=== PATIENT | female | born 1960 | race Caucasian/White ===

== ENCOUNTER 2017-10-24 07:05 | Day surgery (SDC) | payer MEDICARE, SELFPAY ==
[~2017-10-24] VITALS: Ht 157.5 cm; Wt 46.3 kg
[~2017-10-24 07:05] MED LIST: CLON1 PO; LOSA50 PO; MIRT15 PO; OXYC10TA19 PO; Robaxin500 MG PO
== END 2017-10-24 22:49 | disposition home or self-care (01) ==
LOC: ORSCMMR 07:05
PROVIDERS: Internal Medicine Gastroenterology
PROC: 0DBK8ZX Excision of Ascending Colon, Via Natural or Artificial Opening Endoscopic, Diagnostic (ICD-10-PCS; principal; 2017-10-24 08:00)
PROC: 0DBN8ZX Excision of Sigmoid Colon, Via Natural or Artificial Opening Endoscopic, Diagnostic (ICD-10-PCS; principal; 2017-10-24 08:00)
DX: Z12.11 Encounter for screening for malignant neoplasm of colon (principal); D12.2 Benign neoplasm of ascending colon; K63.5 Polyp of colon; I10 Essential (primary) hypertension; F32.9 Major depressive disorder, single episode, unspecified; F17.210 Nicotine dependence, cigarettes, uncomplicated; Z79.899 Other long term (current) drug therapy
CPT/HCPCS: 88305; J7120

== ENCOUNTER 2017-11-14 13:38 | Day surgery (SDC) | payer MEDICARE, SELFPAY | END 2017-11-14 22:52 | disposition home or self-care (01) | LOC: RAD 13:38 | PROC: BP29YZZ Computerized Tomography (CT Scan) of Left Shoulder using Other Contrast (ICD-10-PCS; principal; 2017-11-14) | DX: M25.512 Pain in left shoulder (principal) | CPT/HCPCS: 23350; 73201; 77002; Q9967 ==

== ENCOUNTER 2019-11-08 09:49 | Inpatient (IN) | payer MEDICARE ==
[~2019-11-08] VITALS: Ht 154.9 cm; Wt 47.9 kg
[~2019-11-08 09:49] MED LIST changes: -LOSA50 PO
[2019-11-08 10:34] LABS: BASOPHILS ABSOLUTE AUTO 0.06 K/mm3 (0.00-0.23); BASOPHILS PERCENT AUTO 1 % (0-2); EOSINOPHILS PERCENT AUTO 1 % (0-6); Hemoglobin 13.6 g/dL (11.5-16.0); IMMATURE GRAN ABSOLUTE AUTO 0.03 K/mm3 (0.00-0.10); IMMATURE GRAN PERCENT AUTO 0 % (0-1); LYMPHOCYTES ABSOLUTE AUTO 1.67 K/mm3 (0.84-5.20); LYMPHOCYTES PERCENT AUTO 14 % (21-46); MONOCYTES PERCENT AUTO 4 % (4-13); Mean Corpuscular HGB 31.3 pg (26.0-34.0); Mean Corpuscular HGB Conc 33.2 g/dL (31.5-36.5); Mean Corpuscular Volume 95 fL (80-100); Mean Platelet Volume 10.9 fL (9.1-12.4); NEUTROPHILS ABSOLUTE AUTO 9.35 K/mm3 (1.96-9.15); NEUTROPHILS PERCENT AUTO 80 % (41-73); Platelet Count 230 K/mm3 (150-400); RDW Coefficient Variation 11.9 % (11.7-14.2); RDW Standard Deviation 41.7 fL (35.1-46.3); Red Blood Cell Count 4.34 M/mm3 (3.80-5.20); White Blood Cell Count 11.71 K/mm3 (4.00-11.30)
[2019-11-08 10:53] LABS: Alanine Aminotransfer (ALT/SGP 21 U/L (12-78); Albumin, Blood 4.2 g/dL (3.4-5.0); Albumin/Globulin Ratio 1.5 (0.8-1.8); Alk Phos 86 U/L (50-136); Anion Gap 8 mmol/L (6-16); Aspartate Aminotrans (AST/SGOT 23 U/L (12-37); Bilirubin, Total 0.3 mg/dL (0.1-1.0); Blood Urea Nitrogen 14 mg/dL (8-24); Bun/Creatinine Ratio 21.6 (12.0-20.0); CO2, Blood 27 mmol/L (21-32); Calcium, Blood 9.2 mg/dL (8.5-10.1); Chloride, Blood 106 mmol/L (98-108); Creatinine, Blood 0.65 mg/dL (0.40-1.00); Globulin, Blood 2.8 g/dL (2.2-4.0); Glomerular Filtration Rate >60 (60-); Glucose, Blood 131 mg/dL (70-99); Potassium, Blood 3.4 mmol/L (3.5-5.5); Sodium, Blood 141 mmol/L (136-145)
[2019-11-08] MEDS ORDERED: LOSARTAN POTAS100 MG PO (12:58)
[2019-11-08] MEDS ORDERED: ESCITALOPRAM OX10 M1 PO (12:58)
[2019-11-08] MEDS ORDERED: DIAZEPAM10 MG PO (12:59)
[2019-11-08] MEDS ORDERED: ACET500 PO (13:05)
[2019-11-08 13:14] LABS: Creatine Kinase MB 3.3 ng/mL (0.0-3.6); Creatine Kinase MB Index 1.6 (0.0-4.0)
[2019-11-08 13:20] LABS: CHOL/HDL RATIO 3.4; Cholesterol 188 mg/dL (50-200); HDL Cholesterol 55 mg/dL (>39); LDL/HDL RATIO 2.1; Low Density Lipoprotein Chol 116 mg/dL (0-110); Triglycerides 86 mg/dL (30-160); Very Low Density Lipoprot Chol 17 mg/dL (6-32)
[2019-11-08 14:13] LABS: International Normalized Ratio 1.08; Prothrombin Time Results 11.5 Sec (9.7-11.5)
--- NOTE | 2019-11-08 19:30 | NUR ---
RECEIVED REPORT FROM LETICIA PRIETO. ASSUMED CARE OF PT. SITTING UP IN BED AT THIS TIME, IN APPARENT DISTRESS, C/O LLQ ABD PAIN, HEATING PAD BROUGHT TO PT, APPEARED INCREASINGLY COMFORTABLE, OFF GOING RN ADMINISTERING PAIN MEDICATION TO PT. HEPARIN DRIP VERIFIED, INFUSION ONGOING. NS INFUSING AT 125ML/HR. PT DENIES ANY OTHER NEEDS AT THIS TIME. CALL LIGHT AND POSSESSIONS IN REACH, BED IN LOW POSITION WITH BED ALARM ACTIVATED, WILL CONTINUE TO MONITOR.
--- NOTE | 2019-11-08 19:55 | NUR ---
PT RECEIVED FROM [facility] AT 1545. PT IS HERE FOR ELEVATED TROPONIN AND ABDOMINAL PAIN. PT CT SHOWS SMALL OVARIAN CYSTS, DR HEIDI HARRIS WAS CONSULTED, PT WAS SEEN AND EXAMINED DIDNT SUGGEST TO DO ANY SURGERY OF THIS TIME UNTIL HEART ISSUES ARE FIXED, PT AGREED. PT HAS BEEN REPORTING 6-7/10 PAIN LEVEL, FENTANYL IV GIVEN Q3 HRS AND APAP IN BETWEEN, WAS SLIGHTLY EFFECTIVE. PT ALSO HAD NAUSEA RELIEVED BY ZOFRAN. PT CURRENTLY ON HEPARIN DRIP RUNNING AT 11U/KG/HR 9.2ML/HR AND IV FLUID PLAIN AT 125MLS/HR. PT WAS OFFERED HEAT/WARM BLANKET TO HELP WITH THE PAIN. CARDIOLOGISTS CONSULTED WELL FOR ELEVATED TROP, FOR POSSIBLE ANGIO PROCEDURE TOMORROW OR STRESS TEST. REPORT GIVEN TO ONCOMING SHIFT.
--- NOTE | 2019-11-08 20:36 | NUR ---
SPOKE TO DR. MAGANA REGARDING PT'S TROPONIN LEVEL AND PAIN UNCONTROLLED BY CURRENT MEDICATIONS. ORDERS RECEIVED.
[2019-11-09 01:59] LABS: BASOPHILS ABSOLUTE AUTO 0.03 K/mm3 (0.00-0.23); BASOPHILS PERCENT AUTO 0 % (0-2); EOSINOPHILS ABSOLUTE AUTO 0.06 K/mm3 (0.00-0.68); EOSINOPHILS PERCENT AUTO 1 % (0-6); Hematocrit 36.4 % (33.0-51.0); Hemoglobin 12.1 g/dL (11.5-16.0); IMMATURE GRAN ABSOLUTE AUTO 0.02 K/mm3 (0.00-0.10); IMMATURE GRAN PERCENT AUTO 0 % (0-1); LYMPHOCYTES ABSOLUTE AUTO 2.47 K/mm3 (0.84-5.20); LYMPHOCYTES PERCENT AUTO 30 % (21-46); MONOCYTES ABSOLUTE AUTO 0.47 K/mm3 (0.16-1.47); MONOCYTES PERCENT AUTO 6 % (4-13); Mean Corpuscular HGB 31.5 pg (26.0-34.0); Mean Corpuscular HGB Conc 33.2 g/dL (31.5-36.5); Mean Corpuscular Volume 95 fL (80-100); NEUTROPHILS ABSOLUTE AUTO 5.16 K/mm3 (1.96-9.15); NEUTROPHILS PERCENT AUTO 63 % (41-73); Platelet Count 184 K/mm3 (150-400); Red Blood Cell Count 3.84 M/mm3 (3.80-5.20); White Blood Cell Count 8.21 K/mm3 (4.00-11.30)
[2019-11-09 02:17] LABS: Alanine Aminotransfer (ALT/SGP 22 U/L (12-78); Albumin, Blood 3.4 g/dL (3.4-5.0); Albumin/Globulin Ratio 1.4 (0.8-1.8); Alk Phos 67 U/L (50-136); Anion Gap 7 mmol/L (6-16); Aspartate Aminotrans (AST/SGOT 28 U/L (12-37); Bilirubin, Total 0.3 mg/dL (0.1-1.0); Blood Urea Nitrogen 9 mg/dL (8-24); Bun/Creatinine Ratio 13.9 (12.0-20.0); CO2, Blood 27 mmol/L (21-32); Calcium, Blood 8.7 mg/dL (8.5-10.1); Chloride, Blood 107 mmol/L (98-108); Creatinine, Blood 0.65 mg/dL (0.40-1.00); Globulin, Blood 2.5 g/dL (2.2-4.0); Glomerular Filtration Rate >60 (60-); Glucose, Blood 111 mg/dL (70-99); Potassium, Blood 3.5 mmol/L (3.5-5.5); Sodium, Blood 141 mmol/L (136-145); Total Protein, Blood 5.9 g/dL (6.4-8.2)
--- NOTE | 2019-11-09 03:03 | NUR ---
SPOKE TO DR. FERNANDO REGARDING PT'S TROPONIN LEVEL AND CONTINUED UNRELIEVED PAIN. ORDERS RECEIVED.
--- NOTE | 2019-11-09 04:45 | NUR ---
PT CONTINUING TO EXPERIENCE PAIN UNRELIEVED BY CURRENT MEDICATION REGIMEN. DR. FERNANDO NOTIFIED OF PT CONDITION, ORDERS RECEIVED.
--- NOTE | 2019-11-09 08:10 | NUR ---
PT RESTING IN BED COMFORTABLY IN NO ACUTE DISTRESS. WAS MONITORED EVERY 1-2 HOURS WITH NEEDS MET, DENIES ANY NEEDS AT THIS TIME. APPEARS TO BE RESTING COMFORTABLY. CALL LIGHT AND POSSESSIONS IN REACH, BED IN LOW POSITION WITH BED ALARM ACTIVATED. REPORTED OFF TO LETICIA JIMÉNEZ.
[2019-11-09 09:09] LABS: Source, Urine Clean Catch
[2019-11-09 09:16] LABS: Bilirubin, Urine Neg (Neg); Blood, Urine 3+ (Neg); Glucose Qualitative, Urine Neg (Neg); Ketones, Urine 3+ (Neg); Leukocyte Esterase, Urine 3+ (Neg); Nitrite, Urine Neg (Neg); Protein, Urine 1+ (Neg); Urobilinogen, Urine NORM (Normal)
[2019-11-09 09:26] LABS: Appearance, Urine Clear (Clear); Color, Urine Yellow (P-Yellow)
[2019-11-09 09:28] LABS: Red Blood Cells, Urine 0-2 /hpf (0-2)
[2019-11-09 09:29] LABS: Bacteria Few /hpf; Squamous Epithelial Cells Rare /hpf (Few); Transitional Epithelial Cells Rare /hpf (0-Rare)
--- NOTE | 2019-11-09 16:27 | NUR ---
SHIFT SUMMARY PT A&Ox4; CALM AND COOPERATIVE WITH CARE. PT RESTING IN BED FOR MAJORITY OF SHIFT, SBA TO BSC. PT REPORTING PAIN IN LLQ; MEDICATED x2 WITH DILAUDID AND x1 WITH ROXICODONE WITH POSTIIVE RESULTS. PT DENIES SOB; CP/PRESSURE; DIZZINESS; AND NAUSEA. HEPARIN GTT INFUSION T/O SHIFT, TITRATED PER ORDERS AND EMAR. NPO AFTER MIDNIGHT FOR ANGIO TOMORROW. PT STARTED ON COREG THIS EVENING. VSS. NO OTHER ACUTE CHANGES NOTED DURING SHIFT. WILL CONTINUE TO MONITOR UNTIL REPORT GIVEN TO ONCOMING RN.
--- NOTE | 2019-11-09 19:40 | NUR ---
RECEIVED REPORT FROM LETICIA JIMÉNEZ. PT TRANSPORTED TO PCU FROM [facility]IA [facility]OSPITAL BED, IN NO ACUTE DISTRESS. VS STABLE, RIGHT RADIAL TR SITE WNL, NO OOZING OR HEMATOMA NOTED, GOOD CAPILLARY REFILL. PT DENIES NUMBNESS OR TINGLING. DENIES ANY NEEDS AT THIS TIME, CALL LIGHT AND POSSESSIONS IN REACH, BED ALARM ACTIVATED, REMINDED PT TO CALL WITH NEEDS. INDICATED UNDERSTANDING. WILL CONTINUE TO MONITOR.
--- NOTE | 2019-11-09 20:57 | NUR ---
Echocardiogram completed.
--- NOTE | 2019-11-10 07:25 | NUR ---
PT SITTING ON EDGE OF BED. SLEPT ON AND OFF T/O NIGHT. VS STABLE, PAIN CONTROLLED WITH HEAT PACKS, REST, AND MEDICATIONS ORDERED. ASSESSED RIGHT RADIAL TR SITE WITH ONCOMING RN. PT DENIES ANY FURTHER NEEDS AT THIS TIME. CALL LIGHT AND POSSESSIONS IN REACH, BED IN LOW POSITION. REPORTED OFF TO LETICIA JIMÉNEZ.
[2019-11-10] MEDS ORDERED: Aspir 8181 MG PO (11:08)
[2019-11-10] MEDS ORDERED: ATORVASTATIN CA20 MG PO (11:09)
[2019-11-10] MEDS ORDERED: CARV3.125 PO (11:10)
[2019-11-10] MEDS ORDERED: NICO21TP TOP (11:14)
--- NOTE | 2019-11-10 17:52 | NUR ---
DISCHARGE NOTE PT A&Ox4; ANXIOUS AT TIMES BUT COOPERATIVE WITH CARE. MEDICATED x1 FOR ANXIETY PER EMAR. PT RESTING IN BED DURING SHIFT; UP IND TO BSC. PT REPORTING LLQ PAIN, MEDICATED x2 WITH ROXICODONE AND x1 WITH TYLENOL WITH POSITIVE RESULTS. PT DENIES SOB; CHEST PAIN/PRESSURE, NAUSEA AND DIZZINESS T/O SHIFT. RIGHT RADIAL SITE C/D/I; SMALL SOFT BALL NOTED PAROXYMAL OF RADIAL INSERTION SITE; PER REPORT HAS REMAINED THE SAME T/O NIGHT; NO CHANGES DURING SHIFT; NO BLEEDING OR BRUISING NOTED T/O SHIFT. IMMOBILIZER IN PLACE. VSS. NO OTHER ACUTE CHANGES NOTED DURING SHIFT. PT EDUCATED ON DISCHARGE INSTURCTIONS, FOLLOW UP APPOINTMENT AND MEDICATIONS. PRESCRIPTIONS FAXED TO [facility]; PAPER SCRIPT GIVEN TO PATIENT ON DISCHARGE. PT LEFT ROOM VIA WHEELCHAIR AT 1250; PT STABLE UPON DISCAHRGE.
[2019-11-11 13:07] LABS: T-TRANSGLUTAMINASE (TTG) IGA <2 U/mL (0-3); T-TRANSGLUTAMINASE (TTG) IGG 4 U/mL (0-5)
== END 2019-11-10 12:54 | disposition home or self-care (01) | DRG 281 ==
LOC: ER 09:49 → PCU 09:50
PROVIDERS: Emergency Medicine; ADMIT Internal Medicine
PROC: 4A023N7 Measurement of Cardiac Sampling and Pressure, Left Heart, Percutaneous Approach (ICD-10-PCS; principal; 2019-11-09)
PROC: B2111ZZ Fluoroscopy of Multiple Coronary Arteries using Low Osmolar Contrast (ICD-10-PCS; 2019-11-09)
PROC: B2151ZZ Fluoroscopy of Left Heart using Low Osmolar Contrast (ICD-10-PCS; 2019-11-09)
DX: I21.4 Non-ST elevation (NSTEMI) myocardial infarction (principal); I51.81 Takotsubo syndrome; I10 Essential (primary) hypertension; E78.5 Hyperlipidemia, unspecified; F17.210 Nicotine dependence, cigarettes, uncomplicated; F33.42 Major depressive disorder, recurrent, in full remission; I25.10 Atherosclerotic heart disease of native coronary artery without angina pectoris
CPT/HCPCS: 36415; 71045; 74177; 76830; 76856; 76937; 80053; 80061; 81001; 82550; 82553; 83036; 83516; 83605; 83690; 84443; 84484; 85025; 85610; 85730; 87077; 87086; 87186; 93005; 93010; 93306; 93458; 96361; 96374; 96375; 96376; 99152; 99153; 99285-25; A9270; A9270-GY; C1769; C1894; G0378; J1170; J1644; J2250; J2405; J3010; J7030; J7120; Q9967